=== PATIENT | female | born 1970 | race Two or more races ===

== ENCOUNTER 2022-06-19 18:13 | Emergency (ER) | payer OTHER ==
[~2022-06-19] VITALS: Ht 157.5 cm; Wt 74.8 kg
[2022-06-19] MEDS ORDERED: LEVOTHYROXINE25 MCG PO (18:31)
== END 2022-06-19 20:11 | disposition home or self-care (01) ==
LOC: ER 18:13
DX: S61.451A Open bite of right hand, initial encounter (principal); W54.0XXA Bitten by dog, initial encounter; Y93.89 Activity, other specified; Y92.89 Other specified places as the place of occurrence of the external cause; Y99.9 Unspecified external cause status; E11.9 Type 2 diabetes mellitus without complications; I10 Essential (primary) hypertension

== ENCOUNTER 2023-12-14 10:54 | Outpatient (CLI) | payer OTHER ==
[~2023-12-14 10:54] MED LIST: LEVOTHYROXINE25 MCG PO
== END 2023-12-14 10:59 | disposition home or self-care (01) ==
LOC: SONOGRAMA 10:54
PROVIDERS: ATTEND Pathology Anatomic Pathology & Clinical Pathology
DX: D34 Benign neoplasm of thyroid gland (principal); E06.3 Autoimmune thyroiditis; E07.89 Other specified disorders of thyroid; E04.2 Nontoxic multinodular goiter